=== PATIENT | male | born 1970 | race Caucasian/White ===

== ENCOUNTER → 2020-10-15 08:14 | Outpatient (BNVA) | payer OTHER, SELFPAY | PROVIDERS: PCP Physician Assistant Medical; Referring Provider Physician Assistant Medical; Visit Provider Student in an Organized Health Care Education/Training Program | DX: Z76.89 Persons encountering health services in other specified circumstances (principal) ==

== ENCOUNTER → 2021-10-16 07:58 | Outpatient (BNVA) | payer OTHER, SELFPAY | PROVIDERS: PCP Physician Assistant Medical; Visit Provider Nurse Practitioner Family ==

== ENCOUNTER → 2022-10-16 08:02 | Outpatient (BNVA) | payer OTHER, SELFPAY | PROVIDERS: PCP Physician Assistant Medical; Visit Provider Nurse Practitioner Family | DX: Z13.89 Encounter for screening for other disorder (principal) ==

== ENCOUNTER → 2022-10-23 07:58 | Outpatient (BNVA) | payer OTHER, SELFPAY | PROVIDERS: PCP Physician Assistant Medical; Visit Provider Nurse Practitioner Family | DX: Z13.89 Encounter for screening for other disorder (principal) ==

== ENCOUNTER 2022-10-23 08:47 | Outpatient (REF) | payer OTHER, SELFPAY ==
[2022-10-23 11:02] LABS: Alanine Aminotransferase 33 U/L (0-40); Albumin Level 4.6 g/dL (3.5-5.0); Alkaline Phosphatase 110 U/L (39-117); Anion Gap 13 (12-20); Aspartate Amino Transferase 28 U/L (5-37); Bilirubin Total 0.4 mg/dL (0.0-1.0); Blood Urea Nitrogen 11 mg/dL (9-16); Calcium 9.5 mg/dL (8.4-10.2); Carbon Dioxide 27 mmol/L (22-29); Chloride 105 mmol/L (96-108); Estimated Glomerular Filt Rate > 60; Glucose Random 118 mg/dL (60-115); Potassium 4.1 mmol/L (3.3-5.1); Sodium 141 mmol/L (135-145); Total Protein 7.1 g/dL (6.5-8.0)
== END 2022-10-23 08:48 | disposition home or self-care (01) ==
LOC: HO.10HDL 08:47
PROVIDERS: Visit Provider Nurse Practitioner Family
DX: M79.7 Fibromyalgia (principal)
CPT/HCPCS: 36415; 80053

== ENCOUNTER 2023-05-14 10:03 | Outpatient (AMB) | payer OTHER, SELFPAY ==
[2023-05-14 10:11] VITALS: BP 132/76; PULSE 77; TEMP 36.8; O2SAT 97; BMI 28.5
--- NOTE | 2023-05-14 10:11 | MHC.OFFVIS ---
Intake Vital Signs 05/14/23 10:11 Height 5 ft 10 in Weight 198 lb 10.184 oz BMI 28.5 BP 132/76 Blood Pressure Location Rt brachial Position Sitting Pulse 77 Pulse Source Pulse Oximeter Temp 98.2 F Temp Source Skin Pulse Oximetry (%) 97 Intake Visit Reasons: FM Intake Note: Pt seen today for FM follow up. 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 He was last seen by Estefany Biggs October 2022. Patient states that he is doing about the same overall but feels as though he is having more pain. States that his job is quite physical. 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 Pain is worse towards the end of the day. He takes tramadol 3 times a day and occasionally takes 4th tablet and he would be short 1 tab the following day. Mentions that he was on gabapentin in the past but it gave him side effects. 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 Current occupational exposures/hazards: Yes (Extreme heat/cold) Review of Systems ENT Reports neck pain Musc Reports back pain, Reports myalgias, Reports arthralgias and Reports neck pain Physical Exam Vital Signs: Last Vital Signs Temp 98.2 F 05/14/23 10:11 Pulse 77 05/14/23 10:11 BP 132/76 05/14/23 10:11 Pulse Ox 97 05/14/23 10:11 BMI result Body Mass Index 28.5 Const General: cooperative, healthy appearing and comfortable Nutritional Appearance: overweight Orientation/consciousness: patient oriented x3 Limitations: no limitations HEENT Head: Yes normocephalic and Yes atraumatic Mouth: moist mucous membranes Resp Effort & Inspection: normal respiratory effort and able to speak in complete sentences Auscultation: clear to auscultation bilaterally Cardio Rate: regular rate Rhythm: regular rhythm GI Inspection: No distended Palpation (GI): Soft to palpation and nontender Neuro General: patient oriented x3 Extrem Other: Diffuse fibromyalgia tender points Negative straight leg raise test bilaterally Negative rotator cuff provocation tests bilaterally Assessment & Plan Assessment & Plan (1) Fibromyalgia: Code(s): M79.7 - Fibromyalgia Plan: This is a 53-year-old male with fibromyalgia who presents for follow-up. He was last evaluated by Estefany Biggs 11/02. Doing about the same overall. Continues to have diffuse pain. Managed with tramadol 50 mg 3 times a day. Continue tramadol 50 mg 3 times a day. I discussed fibromyalgia patient. I suggested exploring other avenues for treatment. Such as evaluation by a psychologist to evaluate for underlying anxiety/depression. I suggested evaluating his sleep through a sleep study. Patient stated that he will think about it. Follow-up in 6 months Coding Level of Care Code Est Pt Level 3 (99324) Diagnoses Fibromyalgia M79.7
== END 2023-05-14 10:32 | disposition home or self-care (01) ==
PROVIDERS: PCP Physician Assistant Medical; Visit Provider Student in an Organized Health Care Education/Training Program
DX: M79.7 Fibromyalgia (principal)
CPT/HCPCS: 99213

== ENCOUNTER → 2023-05-14 10:03 | Outpatient (BNVA) | payer OTHER, SELFPAY | PROVIDERS: PCP Physician Assistant Medical; Visit Provider Student in an Organized Health Care Education/Training Program ==

== ENCOUNTER 2023-12-06 07:40 | Outpatient (REF) | payer OTHER, SELFPAY ==
--- NOTE | ~2023-12-06 | XR_ITS ---
EXAMINATION: XR LUMBAR SPINE XR KNEE, RIGHT XR KNEE, LEFT CLINICAL INFORMATION: Pain in unspecified joint. COMPARISON: None available. TECHNIQUE: AP standing, lateral, tunnel and sunrise views of each knee. 6 views including bilateral obliques of the lumbar spine. FINDINGS: LEFT KNEE: No significant joint effusion. Minimal medial and lateral compartment space narrowing. RIGHT KNEE: No significant joint effusion. Minimal medial and lateral compartment space narrowing. LUMBAR SPINE: Slight rightward curvature of the lumbar spine. Facet arthritis in the lower lumbar spine. Moderate multilevel lumbar spondylosis. Atherosclerotic aortic calcifications. Moderate degenerative changes in the bilateral sacroiliac joints. XR/XR lumbar spine 4V min IMPRESSION: 1. Minimal degenerative changes in the bilateral knees. 2. Moderate multilevel lumbar spondylosis.
--- NOTE | ~2023-12-06 | XR_ITS ---
EXAMINATION: XR LUMBAR SPINE XR KNEE, RIGHT XR KNEE, LEFT CLINICAL INFORMATION: Pain in unspecified joint. COMPARISON: None available. TECHNIQUE: AP standing, lateral, tunnel and sunrise views of each knee. 6 views including bilateral obliques of the lumbar spine. FINDINGS: LEFT KNEE: No significant joint effusion. Minimal medial and lateral compartment space narrowing. RIGHT KNEE: No significant joint effusion. Minimal medial and lateral compartment space narrowing. LUMBAR SPINE: Slight rightward curvature of the lumbar spine. Facet arthritis in the lower lumbar spine. Moderate multilevel lumbar spondylosis. Atherosclerotic aortic calcifications. Moderate degenerative changes in the bilateral sacroiliac joints. XR/XR knee LT 3V IMPRESSION: 1. Minimal degenerative changes in the bilateral knees. 2. Moderate multilevel lumbar spondylosis.
--- NOTE | ~2023-12-06 | XR_ITS ---
EXAMINATION: XR LUMBAR SPINE XR KNEE, RIGHT XR KNEE, LEFT CLINICAL INFORMATION: Pain in unspecified joint. COMPARISON: None available. TECHNIQUE: AP standing, lateral, tunnel and sunrise views of each knee. 6 views including bilateral obliques of the lumbar spine. FINDINGS: LEFT KNEE: No significant joint effusion. Minimal medial and lateral compartment space narrowing. RIGHT KNEE: No significant joint effusion. Minimal medial and lateral compartment space narrowing. LUMBAR SPINE: Slight rightward curvature of the lumbar spine. Facet arthritis in the lower lumbar spine. Moderate multilevel lumbar spondylosis. Atherosclerotic aortic calcifications. Moderate degenerative changes in the bilateral sacroiliac joints. XR/XR knee RT 4V IMPRESSION: 1. Minimal degenerative changes in the bilateral knees. 2. Moderate multilevel lumbar spondylosis.
== END 2023-12-06 07:41 | disposition home or self-care (01) ==
LOC: HO.XRAY 07:40
PROVIDERS: PCP Physician Assistant Medical; Visit Provider Student in an Organized Health Care Education/Training Program
DX: M25.561 Pain in right knee (principal); M25.562 Pain in left knee; M54.50 Low back pain, unspecified
CPT/HCPCS: 72110; 73562; 73564

== ENCOUNTER 2023-12-06 07:40 | Outpatient (AMB) | payer OTHER, SELFPAY ==
[2023-12-06 07:41] VITALS: BP 142/78; PULSE 74; O2SAT 98; BMI 28.3
--- NOTE | 2023-12-06 07:41 | A.OFFVIS_ITS ---
Intake Vital Signs 12/06/23 07:41 Height 5 ft 10 in Weight 197 lb 5.019 oz BMI 28.3 BP 142/78 H Blood Pressure Location Rt brachial Pulse 74 Pulse Source Pulse Oximeter Pulse Oximetry (%) 98 Oxygen Delivery Method Room Air Intake Visit Reasons: FMS Intake Note: Patient last seen 05/14/23 presents today for follow up. 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 Last seen 05/2023. States that his pain is worse overall. Especially in the lower back and both knees particularly on the left. He has bilateral hand stiffness. Also has bilateral elbow pain. States that he takes Aleve once or twice a week as needed for his pain. States that he has not been sleeping well as his snores at night. Sleeps better when he sleeps in a different room. 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 Current occupational exposures/hazards: Yes (Extreme heat/cold) Review of Systems Musc Reports back pain, Reports myalgias and Reports arthralgias Physical Exam Vital Signs: Last Vital Signs Pulse 74 12/06/23 07:41 BP 142/78 H 12/06/23 07:41 Pulse Ox 98 12/06/23 07:41 Oxygen Delivery Method Room Air 12/06/23 07:41 BMI result Body Mass Index 28.3 Const General: cooperative, healthy appearing and comfortable Nutritional Appearance: overweight Orientation/consciousness: patient oriented x3 Limitations: no limitations HEENT Head: Yes normocephalic and Yes atraumatic Mouth: moist mucous membranes Resp Effort & Inspection: normal respiratory effort and able to speak in complete sentences Auscultation: clear to auscultation bilaterally Cardio Rate: regular rate Rhythm: regular rhythm GI Inspection: No distended Palpation (GI): Soft to palpation and nontender Neuro General: patient oriented x3 Extrem Other: Diffuse fibromyalgia tender points Negative straight leg raise test bilaterally No knee pain with flexion and extension bilaterally Mild tenderness at the left common extensor origin with positive resisted wrist extension test Assessment & Plan Assessment & Plan (1) Fibromyalgia: Code(s): M79.7 - Fibromyalgia Plan: This is a 53-year-old male with fibromyalgia who presents for follow-up. On tramadol 50 mg 3 times a day. Doing a little worse likely due to degenerative arthritis. Continue with tramadol 50 mg t.i.d. (2) Generalized osteoarthritis: Code(s): M15.9 - Polyosteoarthritis, unspecified Plan: Arthritis of lower back, both knees, will order x-rays of involved joints. Advised patient to take Tylenol up to 3000 mg per day. Apply Voltaren gel on knees. Use systemic NSAIDs sparingly I suggested occupational therapy for bilateral hand OA, bilateral tennis elbow and PT for lower back and knees. Patient stated that he does not believe his work schedule would allow it Plan I spent 25 minutes reviewing patient's chart, evaluating patient, ordering diagnostic workup, counseling patient and documenting in the chart Orders: Orders XR knee LT 3V Today M25.50 - Pain in unspecified joint XR knee RT 3V Today M25.50 - Pain in unspecified joint XR knee standing BI Today M25.50 - Pain in unspecified joint XR lumbar spine 4V min Today M25.50 - Pain in unspecified joint Medications: Refilled tramadol 50 mg PO TID 90 tabs 5RF Coding Level of Care Code Est Pt Level 4 (76163) Diagnoses Fibromyalgia M79.7 Generalized osteoarthritis M15.9
== END 2023-12-06 08:12 | disposition home or self-care (01) ==
PROVIDERS: PCP Physician Assistant Medical; Visit Provider Student in an Organized Health Care Education/Training Program
DX: M79.7 Fibromyalgia (principal); M15.9 Polyosteoarthritis, unspecified
CPT/HCPCS: 99214

== ENCOUNTER 2023-12-24 10:48 | Outpatient (AMB) | payer OTHER, SELFPAY ==
[2023-12-24 11:26] VITALS: BP 136/79; PULSE 74; RESP 16; O2SAT 94; BMI 28.3
--- NOTE | 2023-12-24 11:26 | A.OFFVIS_ITS ---
Intake Vital Signs 12/24/23 11:26 Height 5 ft 10 in Weight 197 lb 8 oz BMI 28.3 BP 136/79 Blood Pressure Location Lt brachial Position Sitting Respiration 16 Pulse 74 Pulse Source Pulse Oximeter Pulse Oximetry (%) 94 Oxygen Delivery Method Room Air Intake Visit Reasons: Spondylosis without myelopathy or radiculopathy Allergies No Known Allergies Allergy (Verified 12/24/23 11:26) HPI HPI Comments History of Present Illness Details Sam is a very pleasant 53-year-old male who presents the office today, accompanied by his , for evaluation management of his chronic pain. Patient was referred here by Rheumatology for lower back pain. Today he reports that his most concerning pain is his left knee pain and he would like to focus on that. He has been suffering with pain for greater than 19 years but it has progressively been getting worse. Is currently using a brace and has been taking Tylenol as needed, tramadol 3 times daily. He is using Voltaren cream twice daily with minimal improvement. Recent x-ray reviewed, results as below Pain today is rated as a 5/10, constant and worse with movement and weather changes. 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 He also complains of pain across his lower back and he has pain from the neck to the feet secondary to his fibromyalgia which he is under the care of rheumatology for. X-ray of his lumbar spine was reviewed, results as per below Patient has not been able to tolerate physical therapy or home exercise program. He has been to the chiropractor which made his pain worse so he stopped going after 3 visits he has never had back surgery or injections. Terms of muscle damage condition is described as aching Pain is negatively impacting patient's sleep, ability perform activities of daily living, normal functioning and work. 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 Answers questions appropriately. Fully engaged in examination. Skin: warm, dry, intact HEENT: Normocephalic. Hearing intact. Cardiac: External chest normal in appearance. Respiratory: No cough, audible wheezing or stridor. Abdomen: without gross distension. MS: Left knee full range of motion. Minimal swelling lateral joint line. Moderate tenderness lateral joint line. Wearing a knee brace that was removed for examination Neurological: Oriented to person, place, time and situation. Thought process intact. No gait abnormalities appreciated. Psychiatric: Appropriate mood and affect. Good judgment and insight. Results Reviewed Results Reviewed: 12/06/23 LEFT KNEE: No significant joint effusion. Minimal medial and lateral compartment space narrowing. RIGHT KNEE: No significant joint effusion. Minimal medial and lateral compartment space narrowing. LUMBAR SPINE: Slight rightward curvature of the lumbar spine. Facet arthritis in the lower lumbar spine. Moderate multilevel lumbar spondylosis. Atherosclerotic aortic calcifications. Moderate degenerative changes in the bilateral sacroiliac joints. IMPRESSION: 1. Minimal degenerative changes in the bilateral knees. 2. Moderate multilevel lumbar spondylosis. Assessment & Plan Assessment & Plan (1) Degenerative arthritis of lumbar spine: Code(s): M47.816 - Spondylosis without myelopathy or radiculopathy, lumbar region (2) Generalized osteoarthritis: Code(s): M15.9 - Polyosteoarthritis, unspecified (3) Left knee pain: Code(s): M25.562 - Pain in left knee Plan Patient presents the office today for evaluation management of his chronic pain. Today he would like to focus on his left knee pain. Patient has exhausted conservative therapy including [id number] medications, topical medications, nonsteroidal anti-inflammatory medications and prescription medications. He is unable to tolerate physical therapy or home exercise program. He tried a brace without improvement of his symptoms Will schedule patient for fluoroscopy guided left intra-articular steroid injection with local anesthetic. After steroid injection we will re-evaluate and plan for Euflexxa once approved by insurance. He may want to consider PRP if pain persists. Continue with Tylenol and topical Voltaren cream as prescribed All questions and concerns were answered patient agrees with plan. Follow up after injection, sooner if needed Coding Level of Care Code New Pt Level 4 (68856) Diagnoses Degenerative arthritis of lumbar spine M47.816 Generalized osteoarthritis M15.9 Left knee pain M25.562
== END 2023-12-24 12:03 | disposition home or self-care (01) ==
PROVIDERS: PCP Physician Assistant Medical; Visit Provider Registered Nurse Emergency
DX: M47.816 Spondylosis without myelopathy or radiculopathy, lumbar region (principal); M15.9 Polyosteoarthritis, unspecified; M25.562 Pain in left knee
CPT/HCPCS: 99204

== ENCOUNTER → 2023-12-24 10:48 | Outpatient (BNVA) | payer OTHER, SELFPAY | PROVIDERS: PCP Physician Assistant Medical; Visit Provider Registered Nurse Emergency ==

== ENCOUNTER 2024-01-03 07:52 | Outpatient (AMB) | payer OTHER, SELFPAY ==
--- NOTE | 2024-01-03 07:55 | A.OFFVIS_ITS ---
Intake Vital Signs 01/03/24 08:00 Height 5 ft 10 in Weight 199 lb BMI 28.6 BP 143/72 H Blood Pressure Location Lt brachial Position Sitting Respiration 12 Pulse 77 Pulse Source Pulse Oximeter Pulse Oximetry (%) 98 Oxygen Delivery Method Room Air Intake Visit Reasons: left intraarticulr knee injection Allergies No Known Allergies Allergy (Verified 01/03/24 08:02) Medication List - Last Reconciled 01/03/24 by Ariadna Pena LPN tramadol 50 mg PO TID HPI left intraarticulr knee injection HPI Details 53-year-old male who presents today to t he office for a left intraarticular knee injection. Denies any recent cough, cold, infection, fever or other significant changes in medical history since last office visit. 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 Alert and oriented. Mood and affect appropriate. Follows and participates in conversation appropriately. Respiratory effort is unlabored. Able to transition from sit to stand unassisted. Ambulates with bilaterally normal heel strike and toe off. There is exquisite tenderness to palpation of the medial meniscus on the left knee. Office Procedures Joint Injection/Drain Joint Injection/Drain Details: Left knee intraarticular injection under ultrasound guidance. Primary Site: left knee Prep: site was prepped using sterile technique Injected: 40 mg of, Kenalog, with 3 mL of and 1% plain lidocaine Approach Used: anteromedial Procedure: The patient tolerated the procedure well Coding Details: An ultrasound image of the injection was taken and stored in the permanent record. 20029 - Large joint (Left, US guided) Procedure code (CPT) selection complete Results Reviewed Results Reviewed: No imaging is available for review. Assessment & Plan Assessment & Plan (1) Left knee pain: Code(s): M25.562 - Pain in left knee Plan Patient is status post left knee intraarticular injection under ultrasound guidance. Patient tolerated procedure well and was discharged home in stable condition with discharge instructions. All questions were answered. We will follow-up in two weeks via telephone or in clinic to assess response to therapy. A follow-up appointment was made during today's visit. A referral was provided to physical therapy for 6 to 8 weeks. He will return to connect to see Nohemy in eight weeks. If his pain is not better after round of physical therapy, we will consider getting a left knee MRI. Scribed for Dr. Mendoza by Simeon Barajas, medical policy specialist, on 01/03/2024. I, Dr. Mendoza, have personally reviewed and agree with the information entered by the scribe. Orders: Orders PT Evaluation and Treatment 01/03/24 M25.562 - Pain in left knee Coding Level of Care Code Est Pt Level 3 (70300) Diagnoses Left knee pain M25.562 CPT Codes Coding - 68811 Large joint: 91484 - Large joint ([id number])
[2024-01-03 08:00] VITALS: BP 143/72; PULSE 77; RESP 12; O2SAT 98; BMI 28.6
== END 2024-01-03 09:06 | disposition home or self-care (01) ==
PROVIDERS: PCP Physician Assistant Medical; Visit Provider Internal Medicine
DX: M25.562 Pain in left knee (principal)
CPT/HCPCS: 20611

== ENCOUNTER → 2024-01-03 07:52 | Outpatient (BNVA) | payer OTHER, SELFPAY | PROVIDERS: PCP Physician Assistant Medical; Visit Provider Internal Medicine | DX: M25.562 Pain in left knee (principal) | CPT/HCPCS: 20611; J2795; J3301 ==

== ENCOUNTER 2024-06-05 07:54 | Outpatient (AMB) | payer OTHER, SELFPAY ==
--- NOTE | 2024-06-05 07:57 | MHC.OFFVIS ---
Vital Signs 06/05/24 08:01 Height 5 ft 10 in Weight 193 lb 5.526 oz BMI 27.7 BP 134/72 Blood Pressure Location Rt brachial Position Sitting Pulse 73 Pulse Source Pulse Oximeter Pulse Oximetry (%) 96 Oxygen Delivery Method Room Air Intake Visit Reasons: FMS Intake Note: Patient presents today for FMS. Allergies No Known Allergies Allergy (Verified 06/05/24 08:00) Medication List - Last Reconciled 06/05/24 by Venkata Harden MD tramadol 50 mg PO TID HPI Comments Details: This is a 54-year-old male with fibromyalgia who presents for follow-up. Last seen . Received a steroid injection in his left knee a few months ago by Pain Management and states that it lasted a few months. He continues to have good and bad days. States that he has been using RYZE coffee and feels that it does help with his memory and cleanse his gut. 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 Current occupational exposures/hazards: Yes (Extreme heat/cold) Review of Systems [facility] [place] pain, Reports myalgias and Reports arthralgias Physical Exam Vital Signs: Last Vital Signs Pulse 73 06/05/24 08:01 BP 134/72 06/05/24 08:01 Pulse Ox 96 06/05/24 08:01 Oxygen Delivery Method Room Air 06/05/24 08:01 BMI result Body Mass Index 27.7 Const General: cooperative, healthy appearing and comfortable Nutritional Appearance: overweight Orientation/consciousness: patient oriented x3 Limitations: no limitations HEENT Head: Yes normocephalic and Yes atraumatic Resp Effort & Inspection: normal respiratory effort and able to speak in complete sentences Auscultation: clear to auscultation bilaterally Cardio Rate: regular rate Rhythm: regular rhythm GI Inspection: No distended Palpation (GI): Soft to palpation and nontender Neuro General: patient oriented x3 Extrem Other: Few fibromyalgia tender points Negative straight leg raise test bilaterally No knee pain with flexion and extension bilaterally Assessment & Plan Assessment & Plan (1) Fibromyalgia: Code(s): M79.7 - Fibromyalgia Category: Medical Plan: This is a 54-year-old male with fibromyalgia who presents for follow-up. On tramadol 50 mg 3 times a day. Symptoms overall well controlled. Continue with tramadol 50 mg t.i.d. (2) Generalized osteoarthritis: Code(s): M15.9 - Polyosteoarthritis, unspecified Category: Medical Plan: Affecting different joints, including his back, knees. He received a left knee steroid injection by Pain Management a few months ago and it provided a few months relief. Plan I spent 15 minutes reviewing patient's chart, evaluating patient, counseling patient and documenting in the chart Medications: Refilled tramadol 50 mg PO TID 90 tabs 5RF Coding Level of Care Code Est Pt Level 3 (41860) Diagnoses Fibromyalgia M79.7 Generalized osteoarthritis M15.9
[2024-06-05 08:01] VITALS: BP 134/72; PULSE 73; O2SAT 96; BMI 27.7
== END 2024-06-05 08:36 | disposition home or self-care (01) ==
PROVIDERS: PCP Physician Assistant Medical; Visit Provider Student in an Organized Health Care Education/Training Program
DX: M79.7 Fibromyalgia (principal); M15.9 Polyosteoarthritis, unspecified
CPT/HCPCS: 99213

== ENCOUNTER → 2024-06-05 07:54 | Outpatient (BNVA) | payer OTHER, SELFPAY | PROVIDERS: PCP Physician Assistant Medical; Visit Provider Student in an Organized Health Care Education/Training Program ==

== ENCOUNTER 2024-12-06 07:50 | Outpatient (AMB) | payer OTHER, SELFPAY ==
--- OUTSIDE RECORDS SUMMARY | 2024-12-06 07:56 | XMS_ITS | Clinical Summary ---
Author Organization [facility] Address [address] [place] [address] Care Team Providers Care Wholesale Representative Name Role Phone Leo Rubalcava Primary Care Provider Unavailabl e Social History Tobacco Use Types Packs/Day Years Used Date Smoking Tobacco: Never Assessed Sex and Gender Information Value Date Recorded Sex Assigned at Not on file Legal Sex Male 12:22 PM EDT Gender Identity Not on file Sexual Orientation Not on file Plan of Treatment Health Maintenance Due Date Last Done Comments Hepatitis C Screening 1970 DTaP/Tdap/Td (1 - Tdap) 1988 Hep B (1 of 3 - 19+ 3-dose series) 1989 Pneumococcal 50+ years (1 of 1 - PCV) 2020 Zoster (Shingrix) (1 of 2) 2020 COVID-19 Vaccine ( - 2023-2 5 season) 2024 Influenza (#1) 2024 HPV Vaccine Aged Out No longer eligi ble based on patient's age to complete this topic Hep A Aged Out No longer eligi ble based on patient's age to complete this topic Hib Aged Out No longer eligi ble based on patient's age to complete this topic Meningococcal ACWY Aged Out No longer eligible based on patient's age to complete this topic Care Teams Wholesale Representative Relationship Specialty Start Date End Date Leo Rubalcava PCP - General 05/17/23
--- OUTSIDE RECORDS SUMMARY | 2024-12-06 07:56 | XMS_ITS | Clinical Summary ---
Author Organization [facility] Address [address] [place] [address] Care Team Providers Care Supervisor Particleboard Name Role Phone Yovani Zavaleta MD Primary Care Provider Unavailab le Allergies No known active allergies Medications Medication Sig Dispensed Refills Start Date End Date Status traMADol (ULTRAM) 50 MG tablet Take 50 mg by mouth every 8 (eight) hours. 5 12/25/2017 Active atorvastatin (LIPITOR) tablet 20 mg Take 1 tablet (20 mg total) by mouth daily. 30 tablet 1 02/14/2024 Active Active Problems Problem Noted Date Diagnosed Date Hyperlipidemia 07/19/2023 Leukocytosis 07/19/2023 Chronic elbow pain, right 01/06/2022 Biceps tendinitis on right 01/06/2022 Family history of prostate cancer in father 04/11 Smoker 05/03/2021 Fibromyalgia 03/15/2021 Overview: Followed by rheumatology at [facility] Resolved Problems Problem Noted Date Diagnosed Date Resolved Date Pain of upper abdomen 02/04/20182020 Immunizations Name Administration Dates Next Due Covid-19 (Pfizer) Dilution Required 10/24/2021,0 04/25/2021,04/04/2021 Influenza Quad (Flucelvax) 0 .5mL >6mon (ccIIV4) 07/12/2019 Family History Medical History Relation Name Comments COPD Father Prostate cancer Father Stomach cancer Other Esophageal cancer Paternal Aunt Relation Name Status Comments Father Other Paternal Aunt Social History Tobacco Use Types Packs/Day Years Used Date Smoking Tobacco: Every Day Cigarettes Started: 05/22/1983 Smokeless Tobacco: Never Tobacco Cessation:Ready to Q uit: Yes Alcohol Use Standard Drinks/Week Comments Yes 21 (1 standard drink = 0.6 oz pu re alcohol) Sex and Gender Information Value Date Recorded Sex Assigned at Male 08/10/2023 3:06 PM EDT Gender Identity Not on file Sexual Orientation Not on file Job Start Date Occupation Industry Not on file Not on file Not on file Last Filed Vital Signs Vital Sign Reading Time Taken Comments Blood Pressure 127/75 07/19/2023 1:16 PM EDT Pulse 73 07/19/2023 1:16 PM EDT Temperature 36.6 ??C (97.9 ??F) 06/12/2023 8:31 AM ED T Respiratory Rate 18 05/22/2021 9:49 AM EDT Oxygen Saturation 99% 07/19/2023 1:16 PM EDT Inhaled Oxygen Concentration - - Weight 90.5 kg (199 lb 9.6 oz) 07/19/2023 1:16 P M EDT Height 177.8 cm (5' 10 ) 07/19/2023 1:16 PM EDT Body Mass Index 28.64 07/19/2023 1:16 PM EDT Plan of Treatment Health Maintenance Due Date Last Done Comments Hepatitis B Vaccines (1 of 3 - 3-dose series) 1970 Pneumococcal Vaccine (1 of 2 - PCV) 1976 DTap / Tdap / Td (1 - Tdap) 1989 Colon Cancer Screening (Colonoscopy) 2015 Shingrix-Zoster Vaccine (1 o f 2) 2020 Depression Screening 05/03/2022 05/03/2021 Tobacco Cessation Counseling 05/03/2022 05/03/2021 BMI Counseling 05/22/2022 05/22/2021, 05/03/2021 COVID-19 Vaccine (4 - 2023-2 5 season) 2024 10/24/2021, 04/25/2021, 04/04/2021 Influenza Vaccine (#1) 2024 07/12/2019 Preventative Health Evaluation 07/19/2024 07/19/2023, 05/03/2021, 01/24/2018 Hepatitis C Screening Completed 05/03/2021 RSV Ped < 20 months Aged Out No longe r eligible based on patient's age to complete this topic Care Teams Supervisor Particleboard Relationship Specialty Start Date End Date Yovani Zavaleta MD PCP - General Internal Medicine 07/19/23
--- OUTSIDE RECORDS SUMMARY | 2024-12-06 07:56 | XMS_ITS | Clinical Summary ---
Author Organization [facility] Address [address] [place] [address] Care Team Providers Care Car Customizer Name Role Phone Sadie Man Primary Care Provider [phone] Social History Tobacco Use Types Packs/Day Years Used Date Smoking Tobacco: Never Assessed Sex and Gender Information Value Date Recorded Sex Assigned at Not on file Gender Identity Not on file Sexual Orientation Not on file Plan of Treatment Health Maintenance Due Date Last Done Comments Hepatitis C Virus Screening 1970 HIV Screening 1983 DTaP/Tdap/Td Vaccines (1 - Tdap) 1989 Hepatitis B Vaccines (1 of 3 - 19+ 3-dose series) 1989 Pneumococcal Vaccines 50+ (1 of 1 - PCV) 2020 Zoster (Shingles) Vaccine (1 of 2) 2020 COVID-19 Vaccine ( - 2023-2 5 season) 2024 Pneumococcal Vaccine: Pediat leland (0-5 Years) and At-Risk Patients (6 to 49 Years) Aged Out No longer eligible b ased on patient's age to complete this topic Care Teams Car Customizer Relationship Specialty Start Date End Date Sadie Man PA PCP - General
--- OUTSIDE RECORDS SUMMARY | 2024-12-06 07:56 | XMS_ITS | Clinical Summary ---
Author Organization [facility] Address [address] [place] [address] Care Team Providers Care Computer Support Analyst Name Role Phone Yovani Zavaleta MD Primary Care Provider [phone] Surgical History Surgery Date Site/Laterality Comments APPENDECTOMY PROCEDURE:APPENDECTOMY HERNIA REPAIR PROCEDURE:HERNIA REPAIR Medical History Medical History Date Comments Fibromyalgia DX:Fibromyalgia Family History Medical History Relation Name Comments COPD Father Prostate cancer Father Esophageal cancer Father's Sister Stomach cancer Other Relation Name Status Comments Father Father's Sister Other Social History Tobacco Use Types Packs/Day Years Used Date Smoking Tobacco: Every Day Cigarettes Started: 05/22/1983 Smokeless Tobacco: Never Alcohol Use Standard Drinks/Week Comments Yes 21 (1 standard drink = 0.6 oz pu re alcohol) Sex and Gender Information Value Date Recorded Sex Assigned at Not on file Legal Sex Male 7:33 AM EST Gender Identity Not on file Sexual Orientation Not on file Obstetrics History Last Filed Vital Signs Vital Sign Reading Time Taken Comments Blood Pressure 127/75 07/19/2023 1:16 PM EDT Pulse 73 07/19/2023 1:16 PM EDT Temperature - - Respiratory Rate - - Oxygen Saturation - - Inhaled Oxygen Concentration - - Weight 90.5 kg (199 lb 9.6 oz) 07/19/2023 1:16 P M EDT Height 177.8 cm (5' 10 ) 07/19/2023 1:16 PM EDT Body Mass Index 28.64 07/19/2023 1:16 PM EDT Plan of Treatment Health Maintenance Due Date Last Done Comments DTaP,Tdap,and Td Vaccines (1 - Tdap) 1989 Hepatitis B Vaccines (1 of 3 - 19+ 3-dose series) 1989 Pneumococcal Vaccine: 50+ Years (1 of 2 - PCV) 1989 Pneumococcal Vaccine: Pediatrics (0 to 5 Years) and At-Risk Patients (6 to 64 Years) (1 of 2 - PCV) 1989 Zoster Vaccines (1 of 2) 2020 Cholesterol Screening (Lipid Panel) 09/13/2022 Colorectal Cancer Screening: Colonoscopy 09/13/2022 Depression Screening 09/13/2022 HIV Screening 09/13/2022 Hepatitis C Screening 09/13/2022 Social Influencers of Health Screening 09/13/2022 COVID-19 Vaccine (2023-2 5 season) 2024 10/24/2021, 04/25/2021, 04/04/2021 Influenza Vaccine (#1) 2024 07/12/2019 HIB Vaccines Aged Out No longer eligi ble based on patient's age to complete this topic HPV Vaccines Aged Out No longer eligi ble based on patient's age to complete this topic Hepatitis A Vaccines Aged Out No long er eligible based on patient's age to complete this topic IPV Vaccines Aged Out No longer eligi ble based on patient's age to complete this topic MMR Vaccines Aged Out No longer eligi ble based on patient's age to complete this topic Meningococcal ACWY Vaccine Aged Out N o longer eligible based on patient's age to complete this topic Meningococcal B Vacine Aged Out No lo nger eligible based on patient's age to complete this topic RSV Immunization Patients Under 20 months Aged Out No longer eligible b ased on patient's age to complete this topic Varicella Vaccines Aged Out No longer eligible based on patient's age to complete this topic Care Teams Computer Support Analyst Relationship Specialty Start Date End Date Yovani Zavaleta MD PCP - General 07/19/23
--- NOTE | 2024-12-06 07:57 | A.OFFVIS_ITS ---
Vital Signs 12/06/24 08:06 Height 5 ft 10 in Weight 186 lb 15.232 oz BMI 26.8 BP 115/62 Blood Pressure Location Lt brachial Position Sitting Pulse 72 Pulse Source Pulse Oximeter Pulse Oximetry (%) 98 Oxygen Delivery Method Room Air Intake Visit Reasons: FMS/OA Intake Note: Patient presents for FMS/OA. Allergies No Known Allergies Allergy (Verified 12/06/24 08:04) Medication List - Last Reconciled 12/06/24 by Shena Alexander MD tramadol 50 mg PO TID HPI Comments Details: Patient is a 54-year-old male with polyarticular osteoarthritis and fibromyalgia here today for follow up Interval History: Patient last seen 06/05/[address] Harden. At that time he reports continuing to have good days and bad days. reported using RYZE in his coffee and felt like this helped clean his gut and help with his memory. No changes made to medication Today, No longer getting knee injections with pain management. Complaining of pain occuring in the right side including the groin. Also complaining his usual bilateral hand and knee pain Rheumatologic History: Osteoarthritis and fibromyalgia Received Tried gabapentin - caused lightheadedness and made him dizzy Current Rheumatology Medication(s): Tramadol 50mg tid PFSH Medical History Diffuse pain Fibromyalgia Smoker Surgical History Hx of appendectomy Family History Mother HTN (hypertension) Father COPD (chronic obstructive pulmonary disease) Prostate cancer Heart failure Social History (Updated 12/06/24 @ 08:06 by CRYSTAL Aguilar) Household Members: Spouse Housing: House Alcohol intake: current Alcohol intake frequency: 0-2 drinks per day Patient Tobacco Use Status: Current everyday Tobacco user Cigarettes Per Day: 8 Years Smoked: 37 Current occupational status: employed 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 Current occupational exposures/hazards: Yes (Extreme heat/cold) Review of Systems Const Details: Review of Systems Constitutional: Denies fever, chills, weight loss ENT: Denies vision changes, eye pain or eye redness, dental caries, dry mouth GI: Denies nausea, vomiting, diarrhea, abdominal pain, change in BM Pulm: Denies SOB, BEGUM, hemoptysis, wheezing Cards: Denies chest pain, palpitations Skin: Denies Raynaud's, rash, nail changes, photosensitivity, OPTICAL GOODS DRILLING MACHINE OPERATOR: Denies headaches, weakness, paresthesias, recurrent falls MSK: as per HPI All other systems reviewed and are unremarkable except noted above Physical Exam Vital Signs: Last Vital Signs Pulse 72 12/06/24 08:06 BP 115/62 12/06/24 08:06 Pulse Ox 98 12/06/24 08:06 Oxygen Delivery Method Room Air 12/06/24 08:06 BMI result Body Mass Index 26.8 Vital signs reviewed Physical Examination CONSTITUITIONAL Patient alert and cooperative. Well appearing and in no apparent painful distress HEENT Conjunctiva and sclera clear. Pupils equal round and reactive to light. No lymphadenopathy. CHEST/RESPIRATORY SYSTEM Normal respiratory effort and able to speak in complete sentences. Clear to auscultation bilaterally. No crackles, rales, rhonchi, wheezes heard. CARDIAC SYSTEM Regular rate and rhythm. S1 and S2 heard no murmurs. Radial pulses intact bilaterally ABDOMEN Tenderness to palpation of the right lower quadrant without guarding or rebound. MSK Hands: Good account relationship manager strength bilaterally. No deformities noted. No synovitis noted to the MCPs, PIPs or DIPs. No tenderness to palpation of these joints. Heberden's nodes noted. Hands dry. Wrists: Full range of motion at the wrists without pain. No tenderness to palpation or synovitis noted to the wrists. Elbows: Full range of motion without pain. No tenderness, weakness, swelling, increased warmth or erythema. Shoulders: Full range of motion without pain. No tenderness, weakness, swelling, increased warmth or erythema. Hips: Full range of motion without pain. Hip bursa: No tenderness to palpation Knees: Full range of motion. No tenderness, swelling, increased warmth or erythema.?No effusion or crepitations Ankles: Full range of motion. No tenderness, swelling, increased warmth or erythema.? Feet: Negative squeeze test. No tenderness to palpation or swelling of the MTPs. Tender points:?No tenderness to palpation of the bilateral trapezius, supraspinatus, greater trochanters, anterior costochondral junctions, bilateral gluteal areas, bilateral suboccipital muscle insertions SKIN Skin intact without rashes. Results Reviewed Results Reviewed: No recent labs or imaging to review Assessment & Plan Assessment & Plan (1) Fibromyalgia: Code(s): M79.7 - Fibromyalgia Category: Medical Plan: #Fibromyalgia Patient is a 54-year-old male with polyarticular osteoarthritis and fibromyalgia here today for follow up. Fibromyalgia is stable. Has been taking tramadol every 6 hours to help with his pain and so we will prescribe this. Plan - Tramadol 50mg q6 hours - Labs today: CBC, CMP, ESR, CRP, hepatitis panel, RF, CCP - RTC 6 months (2) Generalized osteoarthritis: Code(s): M15.9 - Polyosteoarthritis, unspecified Category: Medical Plan: #Polyarticular OA Affecting different joints, including his back, knees. He received a left knee steroid injection by Pain Management a few months ago and it provided a few months relief. But did not return for repeat injections Plan - Topical diclofenc 1% 4 times a day for hands and knees (3) Abdominal pain: Code(s): R10.9 - Unspecified abdominal pain Qualifiers: Abdominal location: right lower quadrant Qualified Code(s): R10.31 - Right lower quadrant pain Plan: #Abdominal pain patient complaining of abdominal pain that radiated to the back and down to the groin. Has a history of appendix removal and so unlikely to be his appendix. No other in constitutional symptoms noted. He did report a history of heavy alcohol use and my concern is that he may have liver impairment. We will check ultrasound of the albumin with elastography Plan - US Abdomen with elastography Plan I spent 20 minutes reviewing the record and labs, taking a history, examining the patient, discussing the treatment plan and documenting in the medical record Orders: Orders Erythrocyte Sedimentation Rate Today M15.9 - Polyosteoarthritis, unspecified, M79.7 - Fibromyalgia, R10.9 - Unspecified abdominal pain Cyclic Citrullinated Peptide Today M15.9 - Polyosteoarthritis, unspecified, M79.7 - Fibromyalgia, R10.9 - Unspecified abdominal pain Hepatitis A,B,C Profile Today R10.31 - Right lower quadrant pain Complete Blood Count Auto Diff Today M15.9 - Polyosteoarthritis, unspecified, M79.7 - Fibromyalgia, R10.9 - Unspecified abdominal pain Comprehensive Met. Panel Today M15.9 - Polyosteoarthritis, unspecified, M79.7 - Fibromyalgia, R10.9 - Unspecified abdominal pain C Reactive Protein Today M15.9 - Polyosteoarthritis, unspecified, M79.7 - Fibromyalgia, R10.9 - Unspecified abdominal pain Rheumatoid Factor Today M15.9 - Polyosteoarthritis, unspecified, M79.7 - Fibromyalgia, R10.9 - Unspecified abdominal pain US abdomen comp w elastography Today F10.20 - Alcohol dependence, uncomplicated, R10.9 - Unspecified abdominal pain Medications: Changed From tramadol 50 mg PO TID 90 tabs 5RF M15.9 - Polyosteoarthritis, unspecified, M79.7 - Fibromyalgia To tramadol 50 mg PO Q6H 30 days 120 tabs 5RF M15.9 - Polyosteoarthritis, unspecified, M79.7 - Fibromyalgia Coding Level of Care Code Est Pt Level 3 (90763) Diagnoses Fibromyalgia M79.7 Generalized osteoarthritis M15.9 Right lower quadrant abdominal pain R10.31 Abdominal location: right lower quadrant
[2024-12-06 08:06] VITALS: BP 115/62; PULSE 72; O2SAT 98; BMI 26.8
== END 2024-12-06 08:57 | disposition home or self-care (01) ==
PROVIDERS: PCP Physician Assistant Medical; Visit Provider Student in an Organized Health Care Education/Training Program
DX: M79.7 Fibromyalgia (principal); M15.9 Polyosteoarthritis, unspecified; R10.31 Right lower quadrant pain
CPT/HCPCS: 99213

== ENCOUNTER → 2024-12-06 07:50 | Outpatient (BNVA) | payer OTHER, SELFPAY | PROVIDERS: PCP Physician Assistant Medical; Visit Provider Student in an Organized Health Care Education/Training Program ==

== ENCOUNTER 2024-12-06 09:03 | Outpatient (REF) | payer OTHER, SELFPAY ==
--- OUTSIDE RECORDS SUMMARY | 2024-12-06 09:53 | XMS_ITS | Clinical Summary ---
Author Organization [facility] Address [address] [place] [address] Care Team Providers Care Oracle Fusion Middleware Developer Name Role Phone Sadie Man Primary Care Provider [phone] Social History Tobacco Use Types Packs/Day Years [...] age to complete this topic Care Teams Oracle Fusion Middleware Developer Relationship Specialty Start Date End Date Sadie Man PA PCP - General
--- OUTSIDE RECORDS SUMMARY | 2024-12-06 09:53 | XMS_ITS | Clinical Summary ---
Author Organization [facility] Address [address] [place] [address] Care Team Providers Care Director Of Regional Sales Name Role Phone Leo Rubalcava Primary Care [...] age to complete this topic Care Teams Director Of Regional Sales Relationship Specialty Start Date End Date Leo Rubalcava PCP - General 05/17/23
--- OUTSIDE RECORDS SUMMARY | 2024-12-06 09:54 | XMS_ITS | Clinical Summary ---
Author Organization [facility] Address [address] [place] [address] Care Team Providers Care Die Maintenance Name Role Phone Yovani Zavaleta MD Primary [...] Fibromyalgia 03/15/2021 Overview: Followed by rheumatology at [facility] Resolved Problems Problem Noted Date Diagnosed Date [...] age to complete this topic Care Teams Die Maintenance Relationship Specialty Start Date End Date Yovani Zavaleta MD PCP - General Internal Medicine 07/19/23
--- OUTSIDE RECORDS SUMMARY | 2024-12-06 09:54 | XMS_ITS | Clinical Summary ---
Author Organization [facility] Address [address] [place] [address] Care Team Providers Care Machine Assembler Supervisor Name Role Phone oYvani Zavaleta MD Primary Care Provider [phone] Surgical History Surgery Date Site/Laterality Comments APPENDECTOMY [...] age to complete this topic Care Teams Machine Assembler Supervisor Relationship Specialty Start Date End Date Yovani Zavaleta MD PCP - General 07/19/23
[2024-12-06 10:16] LABS: MANUAL DIFF FLAG NO
[2024-12-06 10:20] LABS: Basophils Absolute Auto 0.1 X10*3/uL (0.0-0.2); Basophils Percent Auto 0.8 % (0-2); Eosinophils Absolute Auto 0.2 X10*3/uL (0.0-0.4); Hematocrit 44.3 % (42.0-52.0); Hemoglobin 15.4 g/dl (14.0-18.0); Imm Gran Abs Auto 0.04 X10*3/uL (0.00-0.03); Imm Gran Pct Auto 0.3 % (0.0-0.4); Lymphocytes Absolute Auto 3.3 X10*3/uL (1.2-4.9); Lymphocytes Percent Auto 27.6 % (20-40); Mean Corpuscular HGB Conc 34.8 g/dl (31.0-36.0); Mean Corpuscular Hemoglobin 30.4 pg (27.0-33.0); Mean Corpuscular Volume 87.5 fL (80.0-98.0); Mean Platelet Volume 8.8 fL (9.4-12.4); Monocytes Absolute Auto 0.8 X10*3/uL (0.1-1.2); Monocytes Percent Auto 6.5 % (2-11); Neutrophils Absolute Auto 7.4 x10*3/uL (2.0-8.3); Neutrophils Percent Auto 62.8 % (45-73); Platelet Count 305 X10*3/uL (160-400); Red Blood Count 5.06 X10*6/uL (4.60-5.80); Red Cell Distribution Width 12.5 % (11.0-16.0); White Blood Count 11.8 X10*3/uL (4.8-10.8)
[2024-12-06 10:35] LABS: Alanine Aminotransferase 34 U/L (0-40); Albumin Level 4.5 g/dL (3.5-5.0); Alkaline Phosphatase 107 U/L (39-117); Anion Gap 11 (12-20); Aspartate Amino Transferase 30 U/L (5-37); Bilirubin Total 0.3 mg/dL (0.0-1.0); Blood Urea Nitrogen 13 mg/dL (9-16); C Reactive Protein 0.13 mg/dL (< or = 0.50); Calcium 9.4 mg/dL (8.4-10.2); Carbon Dioxide 28 mmol/L (22-29); Chloride 106 mmol/L (96-108); Estimated Glomerular Filt Rate > 60; Glucose Random 105 mg/dL (60-115); Potassium 4.1 mmol/L (3.3-5.1); Sodium 141 mmol/L (135-145); Total Protein 7.9 g/dL (6.5-8.0)
[2024-12-06 10:56] LABS: Rheumatoid Factor < 13.0 IU/mL (<15.0)
[2024-12-06 11:02] LABS: Erythrocyte Sedimentation Rate 3 MM/HR (0-15)
[2024-12-08 19:18] LABS: Cyclic Citrullinated Peptide <16 UNITS
== END 2024-12-06 09:04 | disposition home or self-care (01) ==
LOC: HO.10HDL 09:03
PROVIDERS: Visit Provider Student in an Organized Health Care Education/Training Program
DX: M79.7 Fibromyalgia (principal); M15.9 Polyosteoarthritis, unspecified; R10.9 Unspecified abdominal pain
CPT/HCPCS: 36415; 80053; 85025; 85652; 86140; 86200; 86431

== ENCOUNTER 2025-06-06 07:53 | Outpatient (AMB) | payer OTHER, SELFPAY ==
--- NOTE | 2025-06-06 07:55 | A.OFFVIS_ITS ---
Vital Signs 06/06/25 08:04 Height 5 ft 10 in Weight 189 lb 2.506 oz BMI 27.1 BP 120/70 Blood Pressure Location Rt brachial Position Sitting Pulse 72 Pulse Source Pulse Oximeter Pulse Oximetry (%) 98 Oxygen Delivery Method Room Air Intake Visit Reasons: OA/Fibromyalgia f/u Intake Note: Patient presents for OA/Fibromyalgia follow up. Allergies No Known Allergies Allergy (Verified 06/06/25 08:04) HPI Comments Details: Patient is a 55-year-old male with polyarticular osteoarthritis and fibromyalgia here today for follow up Interval History: Patient last seen 12/06/24 with me - On Tramadol 50mg tid - C/o right sided abdominal pain - Bilateral hand and knee pain - Increased tramadol to q6hr Today - On Tramadol 50mg q6 hr - The increased frequency has improved - Complaining of worsening low back pain with pain shooting down right leg - Bilateral knee pain Rheumatologic History: Osteoarthritis and fibromyalgia Received Tried gabapentin - caused lightheadedness and made him dizzy Steroid injections not effective Current Rheumatology Medication(s): Tramadol 50mg q6hr PFSH Medical History Diffuse pain Fibromyalgia Smoker Surgical History Hx of appendectomy Family History Mother HTN (hypertension) Father COPD (chronic obstructive pulmonary disease) Prostate cancer Heart failure Social History Household Members: Spouse Housing: House Alcohol intake: current Alcohol intake frequency: 0-2 drinks per day Patient Tobacco Use Status: Current everyday Tobacco user Cigarettes Per Day: 8 Years Smoked: 37 Current occupational status: employed 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 Current occupational exposures/hazards: Yes (Extreme heat/cold) Review of Systems Const Details: Review of Systems Constitutional: Denies fever, chills, weight loss ENT: Denies vision changes, eye pain or eye redness, dental caries, dry mouth GI: Denies nausea, vomiting, diarrhea, abdominal pain, change in BM Pulm: Denies SOB, BEGUM, hemoptysis, wheezing Cards: Denies chest pain, palpitations Skin: Denies Raynaud's, rash, nail changes, photosensitivity, FOOD TECHNICIAN: Denies headaches, weakness, paresthesias, recurrent falls MSK: as per HPI All other systems reviewed and are unremarkable except noted above Physical Exam Exam Exam: Vital signs reviewed Physical Examination CONSTITUITIONAL Patient alert and cooperative. Well appearing and in no apparent painful distress MSK Hands * Right Hand: Able to make a fist. No swelling or tenderness to palpation of the MCPs, PIPs or DIPs. * Left Hand: Able to make a fist. No swelling or tenderness to palpation of the MCPs, PIPs or DIPs. * Herbedens nodes noted bilaterally Wrists * Right Wrist: Full ROM to flexion and extension. No swelling or TTP * Left Wrist: Full ROM to flexion and extension. No swelling or TTP Elbows * Right Elbow: Full ROM. No swelling or TTP. No TTP of the medial epicondyle. No TTP of the lateral epicondyle * Left Elbow: Full ROM. No swelling or TTP. No TTP of the medial epicondyle. No TTP of the lateral epicondyle Shoulders * Right shoulder: No swelling noted. No TTP of the AC joint. No TTP of the subacromial bursa. No TTP of the posterior shoulder * Left shoulder: No swelling noted. No TTP of the AC joint. No TTP of the subacromial bursa. No TTP of the posterior shoulder Hip bursa: No tenderness to palpation bilaterally Knees * Right knee: Full ROM. No swelling noted. TTP of the knee joint line. No TTP of pes anserine bursa * Left knee: Full ROM. No swelling noted. TTP of the knee joint line. No TTP of pes anserine bursa. * Crepitations felt bilaterally Ankles * Right ankle: Good ankle dorsiflexion and plantar flexion. No swelling. No TTP of the ankle joint * Left ankle: Good ankle dorsiflexion and plantar flexion. No swelling. No TTP of the ankle joint Feet * Right foot: Negative squeeze test * Left foot: Negative squeeze test Vital Signs: Last Vital Signs Pulse 72 06/06/25 08:04 BP 120/70 06/06/25 08:04 Pulse Ox 98 06/06/25 08:04 Oxygen Delivery Method Room Air 06/06/25 08:04 BMI result Body Mass Index 27.1 Results Reviewed Results Reviewed: Laboratory Tests 12/06/24 09:08 WBC 11.8 H RBC 5.06 Hgb 15.4 Hct 44.3 Plt Count 305 ESR 3 Sodium 141 Potassium 4.1 Chloride 106 Carbon Dioxide 28 BUN 13 Creatinine 0.92 AST 30 ALT 34 C-Reactive Protein 0.13 Rheumatology Labs 12/06/24 09:08 Rheumatoid Factor < 13.0 Cycl Citrul Peptide IgG <16 XR Bilateral Knees and L spine 11/2023 FINDINGS: LEFT KNEE: No significant joint effusion. Minimal medial and lateral compartment space narrowing. RIGHT KNEE: No significant joint effusion. Minimal medial and lateral compartment space narrowing. LUMBAR SPINE: Slight rightward curvature of the lumbar spine. Facet arthritis in the lower lumbar spine. Moderate multilevel lumbar spondylosis. Atherosclerotic aortic calcifications. Moderate degenerative changes in the bilateral sacroiliac joints. IMPRESSION: 1. Minimal degenerative changes in the bilateral knees. 2. Moderate multilevel lumbar spondylosis. Assessment & Plan Assessment & Plan (1) Fibromyalgia: Code(s): M79.7 - Fibromyalgia Category: Medical Plan: #Fibromyalgia Patient is a 55-year-old male with polyarticular osteoarthritis and fibromyalgia here today for follow up. Fibromyalgia is stable. Patient states he will take it easy over the next few months Plan - Tramadol 50mg q6 hours - RTC 6 months (2) Generalized osteoarthritis: Code(s): M15.9 - Polyosteoarthritis, unspecified Category: Medical Plan: #Polyarticular OA Affecting different joints, including his back, knees. He received a left knee steroid injection by Pain Management a few months ago and it provided a few months relief. But did not return for repeat injections Plan - Topical diclofenc 1% 4 times a day for hands and knees Plan I spent 20 minutes reviewing the record and labs, taking a history, examining the patient, discussing the treatment plan and documenting in the medical record Coding Level of Care Code Est Pt Level 3 (82887) Diagnoses Fibromyalgia M79.7 Generalized osteoarthritis M15.9
--- OUTSIDE RECORDS SUMMARY | 2025-06-06 07:57 | XMS_ITS ---
Author Name [facility] Organization Unknown Encounters Encounter Type Encounter Reason Primary Diagnosis Location Date Ambulatory [facility] 07/21/2024 Care Team Organization Name Specialty Phone Email Start Date End Da te [facility] 2024
--- OUTSIDE RECORDS SUMMARY | 2025-06-06 07:57 | XMS_ITS | Clinical Summary ---
Author Organization [facility] Address [address] [place] [address] Care Team Providers Care Rib Chopper Name Role Phone Sadie Man Primary Care Provider [phone] Social History Tobacco Use Types Packs/Day Years Used Date Smoking Tobacco: Never Assessed Sex and Gender Information Value Date Recorded Sex Assigned at Not on file Legal Sex Male 11:47 AM EDT Gender Identity Not on file Sexual Orientation Not on file Plan of Treatment Health Maintenance Due Date Last Done Comments Hepatitis C Virus Screening 1970 HIV Screening 1983 DTaP/Tdap/Td Vaccines (1 - Tdap) 1989 Hepatitis B Vaccines (1 of 3 - 19+ 3-dose series) 04/1989 Pneumococcal Vaccines 50+ (1 of 1 - PCV) 2020 Zoster (Shingles) Vaccine (1 of 2) 2020 COVID-19 Vaccine ( - 2023-25 season) 2024 Care Teams Rib Chopper Relationship Specialty Start Date End Date Sadie Man PA PCP - General
--- OUTSIDE RECORDS SUMMARY | 2025-06-06 07:57 | XMS_ITS | Clinical Summary ---
Author Organization [facility] Address [address] [place] [address] Care Team Providers Care Machine Stripper Cutter Name Role Phone Leo Rubalcava Primary Care [...] - 2023-2 5 season) 2024 Influenza (#1) 2025 HPV Vaccine (No Doses Required) Completed Hep A Aged Out No longer eligi ble based on patient's age to complete this topic Hib Aged Out No longer eligi ble based on patient's age to complete this topic Meningococcal ACWY Aged Out No longer eligible based on patient's age to complete this topic Care Teams Machine Stripper Cutter Relationship Specialty Start Date End Date Leo Rubalcava PCP - General 05/17/23
--- OUTSIDE RECORDS SUMMARY | 2025-06-06 07:57 | XMS_ITS | Clinical Summary ---
Author Organization [facility] Address [address] [place] [address] Care Team Providers Care Practical Nursing Faculty Name Role Phone Yovani Zavaleta MD Primary Care Provider [phone] Surgical History Surgery Date Site/Laterality Comments APPENDECTOMY [...] Years (1 of 2 - PCV) 1989 Zoster Vaccines (1 of 2) 2020 Cholesterol Screening (Lipid Panel) 09/13/2022 Colorectal Cancer Screening: Colonoscopy 09/13/2022 HIV Screening 09/13/2022 Hepatitis C Screening 09/13/2022 Social Influencers of Health Screening 09/13/2022 COVID-19 Vaccine (4 - 2023-2 5 season) 2024 10/24/2021, 04/25/2021, 04/04/2021 Depression Screening 10/11/2024 Influenza Vaccine (#1) 2025 07/12/2019 HIB Vaccines Aged Out No longer [...] age to complete this topic Meningococcal B Vaccine Aged Out No l onger eligible based on patient's age to complete this topic RSV Immunization Patients Under 20 months Aged Out No longer eligible b ased on patient's age to complete this topic Varicella Vaccines Aged Out No longer eligible based on patient's age to complete this topic Care Teams Practical Nursing Faculty Relationship Specialty Start Date End Date Yovani Zavaleta MD PCP - General 07/19/23
--- OUTSIDE RECORDS SUMMARY | 2025-06-06 07:57 | XMS_ITS | Clinical Summary ---
Author Organization [facility] Address [address] [place] [address] Care Team Providers Care Commissioned Police Officer Name Role Phone Yovani Zavaleta MD Primary [...] Fibromyalgia 03/15/2021 Overview: Followed by rheumatology at [facility] Resolved Problems Problem Noted Date Diagnosed [...] 73 07/19/2023 1:16 PM EDT Temperature 36.6 C (97.9 F) 06/12/2023 8:31 AM EDT Respiratory Rate 18 05/22/2021 9:49 AM EDT [...] 2023-2 5 season) 2024 10/24/2021, 04/25/2021, 04/04/2021 Preventative Health Evaluation 07/19/2024 07/19/2023, 05/03/2021, 01/24/2018 Influenza Vaccine (#1) 2025 07/12/2019 Hepatitis C Screening Completed 05/03/2021 RSV Ped < 20 months Aged Out No longe r eligible based on patient's age to complete this topic Care Teams Commissioned Police Officer Relationship Specialty Start Date End Date Yovani Zavaleta MD PCP - General Internal Medicine 07/19/23
[2025-06-06 08:04] VITALS: BP 120/70; PULSE 72; O2SAT 98; BMI 27.1
== END 2025-06-06 08:44 | disposition home or self-care (01) ==
LOC: HO.RHES 07:54
PROVIDERS: PCP Physician Assistant Medical; Visit Provider Student in an Organized Health Care Education/Training Program
DX: M79.7 Fibromyalgia (principal); M15.9 Polyosteoarthritis, unspecified
CPT/HCPCS: 99213